=== PATIENT | female | born 1990 | race Caucasian/White ===

== ENCOUNTER 2022-03-11 22:17 | Emergency (ER) | payer OTHER ==
[2022-03-11] MEDS ORDERED: ACETAMINOPHEN 325 MG TABLET (FP) PO ONE (22:59)
[2022-03-11] MEDS ORDERED: ACETAMINOPHEN 325 MG TABLET (FP) ONE (23:04)
[2022-03-12 00:14] VITALS: BP 99/68; PULSE 104; TEMP 97.9; BMI 22.9
== END 2022-03-12 00:42 | disposition home or self-care (01) ==
LOC: JER 22:17
DX: S83.92XA Sprain of unspecified site of left knee, initial encounter (principal); W52.XXXA Crushed, pushed or stepped on by crowd or human stampede, initial encounter
CPT/HCPCS: 73562-TC-LT-FY; 99283-25